=== PATIENT | male | born 1970 | race Caucasian/White ===

== ENCOUNTER 2017-04-15 10:30 | Emergency (ER) | payer OTHER ==
[~2017-04-15] VITALS: Ht 182.9 cm; Wt 115.0 kg
[2017-04-15 10:31] VITALS: BP 140/84; PULSE 92; RESP 18; TEMP 98.6; O2SAT 95
--- NOTE | 2017-04-15 11:12 | PD ---
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 Denies paresthesias, loss of sensation, decreased range of motion to the affected hand. Reports swelling to the hand. He was seen by his employee med yesterday and was supposed to have an x-ray of the hand today but they canceled and rescheduled for tomorrow. His employer told him to come to the emergency department. He has no other medical complaints. No other modifying factors or associated signs and symptoms. PFSH Past Medical History Asthma: Yes Respiratory: Yes (Asthma) Tetanus Vaccination: > 5 Years Social History Alcohol Use: Yes (Ocassionally) Tobacco Use: Yes (1/2 PPD) Substance Use: No Allergies-Medications (Allergen,Severity, Reaction): Coded Allergies: No Known Allergies (Unverified , 04/15/17) Reported Meds & Prescriptions Reported Meds & Active Scripts Active Ibuprofen 800 Mg Tab 800 Mg PO Q6HR PRN Review of Systems Except as stated in HPI: all other systems reviewed are Neg Physical Exam Narrative GENERAL: Well-nourished, well-developed male patient, in no acute distress SKIN: Warm and dry. HEAD: Atraumatic. Normocephalic. EYES: Pupils equal and round. No scleral icterus. No injection or drainage. ENT: Mucosa pink and moist. Airway patent. NECK: Trachea midline. CARDIOVASCULAR: Regular rate. RESPIRATORY: No accessory muscle use. GASTROINTESTINAL: Rounded. MUSCULOSKELETAL: Dorsal aspect of the thenar eminence area with edema and tenderness on palpation; without erythema or ecchymosis; no obvious deformity; all fingers with full range of motion and sensory intact. Right approximately supple and non-tense with 2+ radial pulse and sensory intact. No obvious deformities. No clubbing. No cyanosis. NEUROLOGICAL: Awake and alert. Oriented 3. No obvious cranial nerve deficits. Motor grossly within normal limits. Normal speech. PSYCHIATRIC: Appropriate mood and affect; insight and judgment normal. Data Data Last Documented VS Vital Signs Date Time Temp Pulse Resp B/P Pulse Ox O2 Delivery O2 Flow Rate FiO2 04/15/17 10:31 98.6 92 18 140/84 95 Room Air Orders Hand, Complete ([id number]) (04/15/17 11:12) Ice/Cold Pack (04/15/17 11:12) Ibuprofen (Motrin) (04/15/17 11:15) MDM Medical Decision Making Medical Screen Exam Complete: Yes Emergency Medical Condition: Yes Medical Record Reviewed: Yes Differential Diagnosis Hand sprain, thumb sprain, fracture, dislocation Narrative Course 46-year-old male with right hand injury. Ibuprofen and ice pack ordered. Right hand x-ray ordered. 1224: Right hand x-ray with no acute findings. Wero bandage provider for compression and support. Ibuprofen prescribed for home. Patient verbalizes understanding and agreement with treatment plan. Patient is medically cleared and stable for discharge. Discussed reasons to return to the emergency department. Instructed patient to follow up with primary care provider. Patient agrees with treatment plan. The patients vital signs are stable and the patient is stable for outpatient follow-up and treatment. Patient discharged home, stable and in no acute distress. Diagnosis Primary Impression: Sprain of right hand Qualified Code: S63.91XA - Sprain of right hand, initial encounter Referrals: Primary Care Physician Patient Instructions: General Instructions, Hand Sprain (ED) Departure Forms: Tests/Procedures, Work Release Enter return to work date: April 18, 2017 Additional Instructions: Tylenol or ibuprofen as directed and as needed to reduce pain Rest, ice, compress, and elevate extremity to decrease pain and inflammation Wero wrap for support Avoid aggravating activity; increase activity as tolerated Follow-up with primary care provider Return to the emergency department immediately with worsening symptoms Med/Other Pt SpecificInfo: Prescription(s) given Scripts Ibuprofen 800 Mg [id number] Mg PO Q6HR PRN (PAIN) #30 TAB Ref 0 Prov:Trina Carvalho 04/15/17 Disposition: 01 DISCHARGE HOME Condition: Stable Trina Carvalho April 15, 2017 11:12
[2017-04-15] MEDS ORDERED: IBUPROFEN 800 MG TAB PO ONE (11:15)
--- NOTE | 2017-04-15 12:21 | RADRPT ---
EXAM DATE/TIME: 04/15/2017 11:30 [facility] COMPARISON: No previous studies available for comparison. INDICATIONS : Right lateral hand pain after a drill fell on it yesterday. MEDICAL HISTORY : None. SURGICAL HISTORY : None. ENCOUNTER: Initial ACUITY: 2 days PAIN SCORE: 8/10 LOCATION: Right lateral hand. FINDINGS: Three view examination of the right hand demonstrates no soft tissue swelling, dislocation, or fractu re. The carpal bones appear intact. The interphalangeal and metacarpophalangeal joints are intact. Bony mineralization is normal. CONCLUSION: 1. There is no evidence of acute fracture. Deniz Whitt MD on April 15, 2017 at 12:18 Board Certified Radiologist. This report was verified electronically.
[2017-04-15] MEDS ORDERED: IBUP800T23 PO (12:23)
[2017-04-15 12:26] VITALS: RESP 20
== END 2017-04-15 13:00 | disposition home or self-care (01) ==
LOC: NEPK 10:30
DX: S63.91XA Sprain of unspecified part of right wrist and hand, initial encounter (principal); J45.909 Unspecified asthma, uncomplicated; F17.210 Nicotine dependence, cigarettes, uncomplicated; X58.XXXA Exposure to other specified factors, initial encounter; Y93.89 Activity, other specified; Y92.9 Unspecified place or not applicable; Y99.0 Civilian activity done for income or pay
CPT/HCPCS: 73130; 99283